=== PATIENT | female | born 1970 | race Caucasian/White ===

== ENCOUNTER 2025-05-18 09:52 | Outpatient (AMB) | payer BC, OTHER, SELFPAY ==
[2025-05-18 10:07] VITALS: BMI 24.6
--- NOTE | 2025-05-18 10:07 | A.PHYSOV ---
Vital Signs 05/18/25 10:07 Height 5 ft 8.5 in Weight 164 lb BMI 24.6 Intake Visit Reasons: NPV Pili Ref- Back pain Intake Note: Patient is a 55 year old female in office today as new patient for back pain. 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 She reports the onset of pain approximately 10 months ago after injuring her back while turning her , who is a paraplegic. Following the injury, an x-ray revealed L1 mild compression fracture, and she has experienced a constant, dull pain localized to that area ever since. She has a history of chronic kidney stones and is sometimes unsure if the pain is musculoskeletal or renal in origin. Her symptoms are exacerbated by standing, bending, and turning, while sitting provides some relief. She denies any pain radiating down her legs or into the groin. She has been performing home exercises and stretching to manage her symptoms. Pain Description - Onset: Approximately 10 months ago, after turning her . - Location: Localized to the mid to lower back, around the L1 region. - Quality: Described as a constant, dull pain, with a pulling sensation on forward bending. - Radiation: Denies any radiation into the groin or down the legs. - Exacerbating Factors: Standing, turning, and bending forward. - Alleviating Factors: Sitting is better than standing. Results - Imaging: An X-ray from approximately 3 months ago showed a L1 compression fracture, with a report noting mild compression of the superior endplate of L1. PFS Medical History (Updated 05/18/25 @ 10:35 by Jey Garcia DO) Lumbar disc herniation Compression fracture of L1 lumbar vertebra Surgical History (Updated 05/15/25 @ 09:43 by Jasmine Acosta MA) Kidney stones H/O: hysterectomy Social History (Updated 05/18/25 @ 10:09 by Jasmine Acosta MA) Alcohol intake: current Alcohol intake frequency: holidays/special occasions only Patient Tobacco Use Status: Never used Tobacco Use of substances other than those prescribed or required for medical reasons: No Current occupational status: retired Review of Systems Narrative Review of Systems - Musculoskeletal: Reports constant, dull back pain that worsens with standing, bending, and turning. - Genitourinary: Reports a history of chronic kidney stones. - Neurological: Denies pain radiating to the groin or down the legs. Physical Exam Exam Exam: Physical Exam - Back: Tenderness to palpation noted around the L1 vertebral level. - Range of Motion: Lumbar spine flexion elicits pain, described as a pulling sensation. Extension is nonpainful. - Neurological: Negative for signs of radiculopathy; no pain reported shooting down the legs. Neurological examination was nonfocal. She was able to perform heel walk and toe walk. Gait was without antalgia. Lumbar range of motion was generally preserved. Patient demonstrated no upper motor neuron signs Vital Signs: BMI result Body Mass Index 24.6 Assessment & Plan Assessment & Plan (1) Compression fracture of L1 lumbar vertebra: Code(s): S32.010A - Wedge compression fracture of first lumbar vertebra, initial encounter for closed fracture Category: Medical (2) Lumbar disc herniation: Code(s): M51.26 - Other intervertebral disc displacement, lumbar region Category: Medical Plan Pain Management - Analgesia: No current pain medications were discussed; the patient manages symptoms with home stretching exercises. - Activities of Daily Living: Pain is aggravated by daily activities such as standing, bending, and turning. Plan Patient was informed and verbally consented to the use of an ambient scribe for clinic note documentation during this visit. 1. Chronic Back Pain The patient's chronic back pain is likely related to a L1 compression fracture sustained approximately 10 months ago. To further evaluate the etiology and assess the healing status of the fracture, an MRI of the lumbar-sacral spine will be ordered. The MRI will help differentiate between ongoing pain from a non-healed fracture, indicated by bone marrow edema, or other potential causes such as a herniated disc. If the MRI reveals the fracture is still healing and symptomatic, a kyphoplasty procedure to inject cement into the vertebra will be considered. Alternatively, if the fracture is healed but a herniated disc is identified as the pain generator, an epidural injection may be offered. The patient will be referred to [facility] for the MRI, and follow-up will be arranged upon receipt of the results. Discussion Notes I discussed with the patient that her chronic back pain is likely related to the compression fracture she sustained. I reassured her that I do not believe there is anything ominous or dangerous causing her symptoms. I recommended obtaining an MRI of her lumbar spine to further investigate, explaining that this will help determine if the fracture is still healing or if there is another cause, such as a herniated disc. I outlined potential treatment pathways based on the MRI findings, including a possible kyphoplasty (cement injection) if the fracture is non-healed and symptomatic, or an epidural steroid injection if a herniated disc is found to be the cause of her pain. We agreed to proceed with the MRI and to follow up to discuss the results and decide on a treatment plan. The order for the MRI will be sent to [facility], as it may be completed faster there. Patient Instructions - An MRI of your lower back will be ordered. It will be sent to [facility], and they will contact you to schedule the appointment. - Continue your home stretching exercises as you are able. - Once the MRI is complete, we will review the results to decide on the next steps for managing your back pain. Orders: Orders MR lumbar spine wo con Today M51.26 - Other intervertebral disc displacement, lumbar region, S32.010A - Wedge compression fracture of first lumbar vertebra, initial encounter for closed fracture Coding Level of Care Code New Pt Level 4 (42407) Add On Problem Visit Only Diagnoses Compression fracture of L1 lumbar vertebra S32.010A Lumbar disc herniation M51.26
--- OUTSIDE RECORDS SUMMARY | 2025-05-18 12:02 | XMS_ITS | Clinical Summary ---
Author Organization [facility] Address [address] [place] [phone] Phone Care Team Providers Care Purchasing Administrative Assistant Name Role Phone Jose Osorio MD Primary Care Provider [phone] Allergies Active Allergy Reactions Criticality Noted Date Comments Bee Venom Protein (Honey Bee) Hives 2009 Oxycodone Hallucinations 05/04/2019 Medications butalbital-acet aminophen-caffe ine (FIORICET, ESGIC) 50-325-40 mg per tablet Take 1 tablet by mouth. 9 Active cetirizine (ZyrTEC) 10 mg tablet Take 1 tablet (10 mg total) by mouth. 3 Active fluticasone propionate (FLONASE) 50 mcg/actuation nasal spray INSTILL 2 SPRAYS INTRANASALLY DAILY AT BEDTIME 2 Active hydrOXYzine HCL (ATARAX) 25 mg tablet Take 1 tablet (25 mg total) by mouth. 4 Active Gemtesa 75 mg tablet tablet Take 1 tablet (75 mg total) by mouth 1 (one) time each day. 5 Active EPINEPHrine (EPIPEN) 0.3 mg/0.3 mL injection Inject 0.3 mL (0.3 mg total) into the thigh 1 (one) time for 1 dose. 1 each 5 Active Active Problems Problem Noted Date Diagnosed Date Anxiety 01/31/2025 Epigastric pain 01/31/2025 Overview (01/31/2025): EGD 05/2019 with erythematous mucous, bx, concerns for celiac Heart murmur 01/31/2025 Kidney cysts 05/12/2024 Nephrolithiasis 05/12/2024 Lichen sclerosus 11/19/2021 Lichen sclerosus et atrophicus of the vulva 12/30 Overview (01/31/2025): Last Assessment & Plan: Reviewed findings with patient. I reviewed the importance of regular maintenance topical steroid use to prevent symptoms, further scarring, and squamous cell cancer of the vulva. I also explained the importance of regular follow up to ensure she has no evidence of precancerous or cancerous changes and that she is not having side effects from her medication. I reviewed areas of application and amount of medication to use. Will use MWF Lidex. Abnormal TSH 04/01/2020 Overview (01/31/2025): Mild elevation 03/2020 Celiac disease 03/28/2020 Migraine 03/23/2019 Right elbow tendinitis 03/23/2019 Palpitations 04/29/2011 Overview (01/31/2025): Long-term, intermittent/transient, neg eval in the past per patient Lumbago 07/15/2010 Depression with anxiety 01/23/2010 IBS (irritable bowel syndrome) 08/29/2009 Raynaud phenomenon 08/29/2009 Allergic rhinitis 06/22/2007 Immunizations Immunization Administration Dates Next Due Hep B, Unspecified 02/17/2005 Hepatitis B (Recombivax HB-D ialysis) 18yo and older 07/03/2001,10/30/2000,09/29/2000 Influenza trivalent, 0.5mL, preservative free (Fluarix; FluLaval; Fluzone) ages 6mo and older (Afluria) 3 years and older 03/04/2022,03/06/2021,03/06/2020,2018,03/12/2018,03/12/2017,03/12/2016,0 02/23/2015,03/22/2014,03/02/2013, 013 MMR, measles mumps and rubel la Live (Priorix; M-M-R II) 12mo and older 09/28/1974,01/30/1970 Mumps 10/25/2009 Pfizer (ages 12 & older) Biv alent, COVID-19 03/22/2022 Smallpox 1969 Td Tetanus diptheria (Tdvax) 7yo and older 01/28/2001 Tdap Tetanus diptheria acell ular pertussis (Boostrix; Adacel) 7yo and older 01/15/2021,12/18/2010 Varicella live (Varivax) 12m o and older 03/06/2000 Surgical History Surgery Date Site/Laterality Comments TONSILLECTOMY PROCEDURE: HISTORICAL TONSILLECTOMY HYSTERECTOMY age 37 PROCEDURE: HISTORICAL HYSTERECTOMY; COMMENT: R ovary was left in OTHER SURGICAL HISTORY PROCEDURE: ---- OTHER ----; COMMENT: lithotripsy of kidney stone, 07/11 OTHER SURGICAL HISTORY 10/2007 PROCEDURE: ---- OTHER ----; COMMENT: R breast lumpectomy (fibroid) ROTATOR CUFF REPAIR Right PROCEDURE: HISTORICAL ROTATOR CUFF REPAIR ELBOW SURGERY Right PROCEDURE: HISTORICAL ELBOW SURGERY; COMMENT: tennis elbow surgery BREAST BIOPSY 2002 Right PROCEDURE: BX BREAST; PERC NEEDLE CORE W/IMAG GUID; COMMENT: b9 EYE SURGERY Bilateral PROCEDURE: HISTORICAL EYE SURGERY; COMMENT: upper lid excess tissue removal COLONOSCOPY 05/04/2019 PROCEDURE: HISTORICAL COLONOSCOPY; COMMENT: negative UPPER GASTROINTESTINAL ENDOSCOPY 05/04/2019 PROCEDURE: TX UPPER GI ENDOSCOPY PERFORMED; COMMENT: biopsy pending BREAST SURGERY 2002 Right PROCEDURE: TX UNLISTED PROCEDURE BREAST; COMMENT: rt breast cyst removed FOOT SURGERY 05/15/2023 Left PROCEDURE: HISTORICAL FOOT SURGERY; COMMENT: daugherty neuroma Medical History Medical History Date Comments Blood type O+ DX:Blood type O+ Lichen sclerosus DX:Lichen scler osus Epigastric pain DX:Epigastric pa in IBS (irritable bowel syndrome) D X:IBS (irritable bowel syndrome) Anxiety DX:Anxiety Hx of migraine headaches DX:Hx o f migraine headaches Daugherty neuroma, left DX:Dat woody, left; COMMENT: Seen by [facility] (Dr. Coleen Reed) - treated with steroid injection Family History Medical History Relation Name Comments Hyperlipidemia Father Hypertension Father Other: dvt Father Other: hematuria Father benign Other: psoriasis Father Rheum arthritis Father Coronary artery disease Father's side lat er in life Prostate cancer Maternal Grandfather Heart failure Mother idiopathic car diomyopathy Thyroid disease Mother Diabetes Paternal Grandfather Cataracts Paternal Grandmother Diabetes Paternal Grandmother Glaucoma Paternal Grandmother Blindness Neg Hx Breast cancer Neg Hx Colon cancer Neg Hx Macular degeneration Neg Hx Ovarian cancer Neg Hx Strabismus Neg Hx Uterine cancer Neg Hx Relation Name Status Comments Father Alive obese, HTN, DVT Father's side Maternal Grandfather Maternal Grandmother (Age 40s) c erebral thrombosis, Migraine Mother Alive HTN, VT 2010 ag e 62 with ICD, Brian's, Migraine Paternal Grandfather (Age 95) pr ostate cancer Paternal Grandmother (Age late a ge 30s) brain aneurysm post op Hyst Sister Alive twin sister,hea lthy, overweight, Migraine, anxiety Social History Tobacco Use Types Packs/Day Years Used Date Smoking Tobacco: Never Smokeless Tobacco: Never Tobacco Cessation:Counseling Given: Not Answered Alcohol Use Standard Drinks/Week Comments Yes 0 (1 standard drink = 0.6 oz pur e alcohol) Comments No Sex and Gender Information Value Date Recorded Sex Assigned at Not on file Legal Sex Female 5:19 AM EST Gender Identity Not on file Sexual Orientation Not on file Last Filed Vital Signs Vital Sign Reading Time Taken Comments Blood Pressure 130/75 02/01/2025 1:51 PM EDT Pulse 74 02/01/2025 1:51 PM EDT Temperature - - Respiratory Rate - - Oxygen Saturation - - Inhaled Oxygen Concentration - - Weight 73.3 kg (161 lb 9.6 oz) 02/01/2025 1:51 P M EDT Height 174 cm (5' 8.5 ) 02/01/2025 1:51 PM EDT Body Mass Index 24.21 02/01/2025 1:51 PM EDT Plan of Treatment Health Maintenance Due Date Last Done Comments Drug Screen 1970 Non-Opioid Controlled Substance Agreement 1970 Pneumococcal Vaccine: 50+ Years (1 of 1 - PCV) 2019 Zoster Vaccines (1 of 2) 2019 03/06/2000 HIV Screening 05/10/2022 Depression Screening 06/01/2024 COVID-19 Vaccine ( season) 2025 03/22/2022, 04/12/2021, 07/16/2020, Additional history exists Breast Cancer Screening 10/28/2025 10/29/19 24, 10/29/2023, 09/30/2023, Additional history exists Hypertension/CHF/CAD Annual BMP Blood Test 02/01/2026 02/01/2025, 01/20/2024 Social Influencers of Health Screening 02/01/2026 02/01/2025 Colorectal Cancer Screening: Colonoscopy 05/04/2029 05/04/2019 Cholesterol Screening (Lipid Panel) 02/01/2030 02/01/2025, 01/20/2024, 01/20/2024 DTaP,Tdap,and Td Vaccines (4 - Td or Tdap) 01/15/2031 01/15/2021, 12/18/2010, 01/28/2001 RSV Immunization Adult Patients (1 - 1-dose 75+ series) 2044 MMR Vaccines Completed 09/28/1974, 01/30/1970 Varicella Vaccines Aged Out 03/06/2000 No longer eligible based on patient's age to complete this topic Hepatitis B Vaccines Completed 02/17/2005, 07/03/2001, 10/30/2000, Additional history exists Hepatitis C Screening Completed 01/20/2024 Influenza Vaccine Discontinued 03/22/2025, , 03/18/2023, Additional history exists HIB Vaccines Aged Out No longer eligi ble based on patient's age to complete this topic HPV Vaccines Aged Out No longer eligi ble based on patient's age to complete this topic Hepatitis A Vaccines Aged Out No long er eligible based on patient's age to complete this topic IPV Vaccines Aged Out No longer eligi ble based on patient's age to complete this topic Meningococcal ACWY Vaccine Aged Out N o longer eligible based on patient's age to complete this topic Meningococcal B Vaccine Aged Out No l onger eligible based on patient's age to complete this topic RSV Immunization Patients Under 20 months Aged Out No longer eligible based on patient's age to complete this topic Procedures Procedure Name Priority Date/Time Associated Diagnosis Comments COMPREHENSIVE METABOLIC PANEL Routine 02/01/2025 2:29 PM EDT Screening for cardiovascular condition LIPID PANEL WITH REFLEX TO DIRECT LDL Routine 02/01/2025 2:29 PM EDT Mixed hyperlipidemia HEPATITIS C SCREENING Routine 01/20/2024 DIAGNOSTIC MAMMOGRAPHY WITH CAD UNILATERAL Routine 10/29/2023 10:45 AM EDT Other abnormal and inconclusive findings on diagnostic imaging of breast COLONOSCOPY Routine 05/04/2019 from Last 3 Months or Most Recently Relevant to Health Maintenance Results * (ABNORMAL) Lipid panel with reflex to direct LDL (02/01/2025 2:29 PM EDT) Cholesterol 189 0 - 200 mg/dL LAB [facility] Triglycerides 56 0 - 150 mg/dL LAB CHEMISTRY METHOD 02/01/2025 6:20 PM [facility] HDL 70 >=40 mg/dL LAB CHEMISTRY METHOD 02/01/2025 6:20 PM [facility] LDL Calculated 108(H) 0 - 100 mg/dL LAB CHEMISTRY METHOD 02/01/2025 6:20 PM [facility] Comment:Estimated LDL Calcul ated using equation: Total cholesterol - HDL cholesterol - (Triglycerides/5) VLDL Cholesterol Curt 11.2 mg/dL LAB CHEMISTRY METHOD 02/01/2025 6:20 PM [facility] Non HDL Chol. (LDL+VLDL) 119 <145 mg/dL LAB CHEMISTRY METHOD 02/01/2025 6:20 PM [facility] Chol/HDL Ratio 2.7 0.0 - 4.4 LAB CHEMISTRY METHOD 02/01/2025 6:20 PM [facility] Blood Venous blood specimen / Unknown Venipuncture / Unknown 02/01/2025 2:29 PM EDT 02/01/2025 2:29 PM EDT us Jose Osorio MD LAB BLOOD ORDERABLES Final Resu lt [facility] [address] [place] [address], * (ABNORMAL) Comprehensive metabolic panel (02/01/2025 2:29 PM EDT) Sodium 140 133 - 145 mmol/L LAB CHEMISTRY METHOD 02/01/2025 6:24 PM EDT [facility] Potassium 4.9 3.5 - 5.5 mmol/L LAB CHEMISTRY METHOD 02/01/2025 6:24 PM [facility] Chloride 106 96 - 110 mmol/L LAB CHEMISTRY METHOD 02/01/2025 6:24 PM [facility] CO2 32 21 - 32 mmol/L LAB CHEMISTRY METHOD 02/01/2025 6:24 PM [facility] Anion Gap 2(L) 3 - 11 LAB CHEMISTRY METHOD 02/01/2025 6:24 PM [facility] Glucose 98 70 - 100 mg/dL LAB CHEMISTRY METHOD 02/01/2025 6:24 PM [facility] BUN 11 5 - 25 mg/dL LAB CHEMISTRY METHOD 02/01/2025 6:24 PM [facility] Creatinine 0.66 0.50 - 1.10 mg/dL LAB CHEMISTRY METHOD 02/01/2025 6:24 PM [facility] eGFR 104 >=60 mL/min/1. 73m2 LAB CHEMISTRY METHOD 02/01/2025 6:24 PM [facility] Comment:Calculation based on the Chronic Kidney Disease Epidemiology Collaboration (CKD-EPI) equation refit without adjustment for race. BUN/Creatinine Ratio 16.7 LAB CHEMISTRY METHOD 02/01/2025 6:24 PM [facility] Calcium 9.2 8.5 - 10.5 mg/dL LAB CHEMISTRY METHOD 02/01/2025 6:24 PM EDT [facility] AST (SGOT) 20 10 - 42 unit/L LAB CHEMISTRY METHOD 02/01/2025 6:24 PM EDT [facility] ALT (SGPT) 21 10 - 60 unit/L LAB CHEMISTRY METHOD 02/01/2025 6:24 PM EDT [facility] Alkaline Phosphatase 86 42 - 121 unit/L LAB CHEMISTRY METHOD 02/01/2025 6:24 PM EDT [facility] Total Protein 7.0 6.0 - 8.0 g/dL LAB CHEMISTRY METHOD 02/01/2025 6:24 PM EDT [facility] Albumin 4.2 3.2 - 5.0 g/dL LAB CHEMISTRY METHOD 02/01/2025 6:24 PM EDT [facility] Total Bilirubin 0.4 0.0 - 1.4 mg/dL LAB CHEMISTRY METHOD 02/01/2025 6:24 PM EDT [facility] Blood Venous blood specimen / Unknown Venipuncture / Unknown 02/01/2025 2:29 PM EDT 02/01/2025 2:29 PM EDT Jose Osorio MD LAB BLOOD ORDERABLES Final Resu lt [facility] [address] [place] [address], * Hepatitis C Screening (01/20/2024) Hepatitis C Screening negative Historical Provider HEALTH MAINTENANCE Final Result * DIAGNOSTIC MAMMOGRAPHY WITH CAD UNILATERAL (10/29/2023 10:45 AM EDT) Anatomical Region Laterality Modality Mammography 10/01/2023 1:33 PM EDT Narrative 10/29/2023 10:52 AM EDT This is a summary report. The complete report is available in the patient's medical record. If you cannot access the medical record, please contact the sending organization for a detailed fax or copy. History: Callback from screening for suggestion of architectural distortion in the lateral aspect of the right breast on the CC view. Study: Unilateral right diagnostic mammography with tomosynthesis and CAD Technique: Unilateral right digital diagnostic mammography is obtained and read in conjunction with computer aided detection. Tomosynthesis as well as 2D C-View imaging were obtained. Spot compression tomosynthesis images also obtained. Comparison: Comparison made to multiple prior, most recent September 30, 2023, and most remote April 21, 2012. Breast composition: The breast tissue is heterogeneously dense, which may obscure small masses. Right breast: History of remote excisional biopsy. Previously suggested architectural distortion in the lateral breast on the CC view at about 7.5 cm from the nipple is pliable with spot compression; local parenchyma is not significantly changed from prior studies as far back as at least from 2021. IMPRESSION: Impression: Right breast: Benign, no specific mammographic evidence of malignancy. Normal interval follow-up is recommended in 12 months. BI-RADS: Category 2: Benign Findings and recommendations discussed with the patient at the completion of the studies. Procedure Note Yelena Herron MD - 01/18/2024 This is a summary report. The complete report is available in thepatient's medical record. If you cannot access the medical record, pleasecontact the sending organization for a detailed fax or copy. History: Callback from screening for suggestion of architecturaldistortion in the lateral aspect of the right breast on the CC view. Study: Unilateral right diagnostic mammography with tomosynthesis andCAD Technique: Unilateral right digital diagnostic mammography is obtained andread in conjunction with computer aided detection. Tomosynthesis as wellas 2D C-View imaging were obtained. Spot compression tomosynthesis imagesalso obtained. Comparison: Comparison made to multiple prior, most recent September 30, 2023,and most remote April 21, 2012. Breast composition: The breast tissue is heterogeneously dense, which mayobscure small masses. Right breast: History of remote excisional biopsy. Previously suggestedarchitectural distortion in the lateral breast on the CC view at about 7.5cm from the nipple is pliable with spot compression; local parenchyma isnot significantly changed from prior studies as far back as at least [id number]. IMPRESSION: Impression: Right breast: Benign, no specific mammographic evidence of malignancy.Normal interval follow-up is recommended in 12 months. BI-RADS: Category 2: Benign Findings and recommendations discussed with the patient at the completionof the studies. Anthony JULIEN IMG BI PROCEDURES Final Result * Colonoscopy (05/04/2019) Colonoscopy completed Anatomical Region Laterality Modality Other Historical Provider HEALTH MAINTENANCE Final Result from Last 3 Months or Most Recently Relevant to Health Maintenance Insurance [facility] Care Teams Purchasing Administrative Assistant Relationship Specialty Start Date End Date Jose Osorio MD [address] [place] [address] PCP - General Internal Medicine 11/22/21
--- OUTSIDE RECORDS SUMMARY | 2025-05-18 12:02 | XMS_ITS | Patient Health Record ---
[facility] Address [address] [place] [address] Care Team Providers Care Manager Training Name Role Phone Mario SHIRLEY, Marcellus Primary Care Provider Unavail able Black, Litzy Unavailable [phone] Allergies Allergen (clinical drug ingredient) Drug/Non Drug Allergy documented on EMR Reaction Allergy Type Onset Date Status acetaminophen / oxycodone Percocet Unknown Drug Allergy Active sulfa Unknown Drug Allergy Active Reason For Referral No Information Problems Problem Type SNOMED Code ICD Code Onset Dates Problem Status W/U Status Risk Notes Problem Arthralgia (87229166) Arthralgia (719.40) Active confirmed Problem Disorder of joint of ankle and/or foot (518670187) Arthritis - Degenerative (719.97) Active confirmed Problem Pain in limb (78150062) Pain in Limb (729.5) Active confirmed Problem Tailors bunion (7326340) Tailors Bunion (727.1) Active confirmed Plan Of Treatment Pending Test Test Name Order Date X ray : Foot, left 3V 01/06/2012 Insurance Providers Payer Name Payer Address Payer Phone Subscriber Number Group Number Insured Name Patient Relationship to Insured Coverage Start Date Coverage End Date [facility] [address] [place] [address] [phone] [id number] Chiki Pelon Spouse - patient is the spouse of the insured 3 Medical (General) History Medical History History ICD Code anemia back, hip, knee pain lyme disease raynauds syndrome bradycardia Surgical History Surgery Date(Month/Year) hysterectomy kidney stones wisdom teeth extraction
--- OUTSIDE RECORDS SUMMARY | 2025-05-18 12:03 | XMS_ITS | Patient Health Record ---
Author Organization [facility] Address [address] [place] [address] Care Team Providers Care Client Services Associate Name Role Phone Marcellus Martin Primary Care Provider Unavailabl e Allergies Allergen (clinical drug ingredient) Drug/Non Drug Allergy documented on EMR Reaction Allergy Type Onset Date Status Shellfish (FN) shrimp (uncoded) Unknown Allergy Active Bee Sting Unknown Allergy Active oxycodone Oxycodone Unknown Drug Allergy Active Reason For Referral No Information Medications Medication SIG (Take, Route, Frequency, Duration) Notes Start Date End Date Status EpiPen 2-Gordon 0.3 MG/0.3ML as directed Injection Active Amitriptyline HCl 25 MG 2 tablets at bed time Orally Once a day Active ZyrTEC Allergy 10 MG 1 tablet Orally Onc e a day Active Fluticasone Furoate 27.5 MCG/SPRAY 2 sprays in each nostril Nasally Once a day Active Acetaminophen 8 Hour 650 MG 2 tablets as needed Orally every 8 hrs Active Fioricet 50-300-40 MG 1 capsule as neede d Orally every 4 hrs Active Losartan Potassium 50 MG 1 tablet Orally Once a day Active Problems Problem Type SNOMED Code ICD Code Onset Dates Problem Status W/U Status Risk Notes Problem Daugherty's neuroma of left foot (296541286634 105) 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 Plan Of Treatment Pending Test Test Name Order Date INJECT NEUROMA 10/14/2021 INJECT NEUROMA 11/11/2021 Insurance Providers Payer Name Payer Address Payer Phone Subscriber Number Group Number Insured Name Patient Relationship to Insured Coverage Start Date Coverage End Date [employer] [facility] [address] [place] [address] [phone] [id number] Kerrie Monet Self - patient is the insured Medications Administered Medication Instructions Date of Administration Dosage Notes Dexamethasone 10/14/2021 0.5 mL Dexamethasone 11/11/2021 0.5 mL Kenalog 10/14/2021 0.5 mL Kenalog 11/11/2021 0.5 mL Medical (General) History Medical History History ICD Code essential hypertension abnormal TSH (mild elevation) celiac disease epigastric pain depression with anxiety migraine right elbow tendinitis palpitations lumbago IBS (irritable bowel syndrome) Raynaud phenomenon nephrolithiasis lithotripsy right 2009 Leonor Vallecillo (PVU) allergic rhinitis Surgical History Surgery Date(Month/Year) lithotripsy of kidney stone 07/11 right breast lumpectomy (fibroid) 11/06 right breast cyst removed 2002 right BX breast; PERC needle core W/IMAG GUID B9 2002 colonoscopy negative 05/04/2019 right tennis elbow surgery bilateral upper lid excess tissue remova l hysterectomy right ovary was left in 200 7 right rotator cuff repair tonsillectomy upper GI endoscopy 05/04/2019 Hospitalization History Reason Date(Month/Year) hysterectomy 2006
== END 2025-05-18 10:37 | disposition home or self-care (01) ==
LOC: HO.HPHYS 09:52
PROVIDERS: PCP Internal Medicine; Visit Provider Physical Medicine & Rehabilitation
DX: S32.010A Wedge compression fracture of first lumbar vertebra, initial encounter for closed fracture (principal); M51.26 Other intervertebral disc displacement, lumbar region
CPT/HCPCS: 99204